=== PATIENT | female | born 1995 | race African-American/Black ===

== ENCOUNTER 2020-02-14 11:49 | Emergency (ER) | payer MEDICAID ==
[~2020-02-14] VITALS: Ht 160 cm; Wt 117.9 kg
[~2020-02-14 11:49] MED LIST: AMOXICILLIN400 MG PO; PRENATAL CAPSU1 EACH PO
[2020-02-14 12:12] VITALS: BP 123/84
[2020-02-14] MEDS ORDERED: Morphine Sulfate 4mg/ml Inj (IV USE ONLY) IVP ONE (12:15)
--- NOTE | 2020-02-14 12:17 | Emergency Room Report ---
History of Present Illness General Chief Complaint: Abdominal Pain Source: Patient Present Illness HPI Disclaimer: Please note that this report is being documented using [employer] technology. This can lead to erroneous entry secondary to incorrect interpretation by the dictating instrument. HPI: 24-year-old female presents for evaluation abdominal pain vomiting and diarrhea. Symptoms began 3 days ago. Patient ate fast food on 02/10 after which she developed upper abdominal cramping, persistent emesis and loose stools. Denies dysuria, hematuria though is currently on her menses. Denies vaginal discharge, denies flank pain. Denies fever, chills, chest pain, palpitation, shortness of breath or cough. Prior history of section and oophorectomy for ectopic . Continues to pass gas. Pain is currently 10/10. No exacerbating or relieving factors. PMH: Denies PSH: section, oophorectomy Allergies: Denies Social Hx: THC use Allergies: Coded Allergies: No Known Allergies (Unverified , 11/28/11) COVID-19 Screening Contact w/high risk pt: No Experienced COVID-19 symptoms?: No COVID-19 Testing performed RUBBER CHEMIST: No Patient History Last Menstrual Period: 02/12/20 Now: No Nursing Documentation-PMH Past Medical History: No Stated History Review of Systems All Other Systems: negative except mentioned in HPI Physical Exam Vital Signs Date Time Temp Pulse Resp B/P (MAP) Pulse Ox O2 Delivery O2 Flow Rate FiO2 02/14/20 11:39 97.2 72 20 123/84 (97) 100 Room Air General: Awake and alert, appears uncomfortable HEENT: NC/AT. EOMI. moist mucous membranes Cardiovascular: RRR. S1 and S2 normal. No murmur appreciated Resp: Normal work of breathing. No cough, wheezing or crackles appreciated Abdomen: Abdomen is soft, nondistended. Obese abdomen. Tender to palpation in the epigastric and left upper quadrant, right upper quadrant, periumbilical region. Mild tenderness in the lower quadrants without rebound. No guarding. No peritoneal signs. Skin: Intact. No abrasions, laceration or rash over the exposed skin MSK: Normal tone and bulk. Moving all extremities. No obvious deformity. Neuro: Awake and alert. Mentating appropriately. Medical Decision Making Diagnostic Impression: Primary Impression: Gastritis Additional Impression: UTI (urinary tract infection) ER Course This is a 24-year-old female presenting for evaluation of 3 days nausea, vomiting, diarrhea and abdominal pain. Differential includes was not limited to gastritis, gastroenteritis, GERD, peptic ulcer disease, pancreatitis, cholecystitis, choledocholithiasis, nephrolithiasis, UTI, pyelonephritis, food poisoning, viral syndrome among others. Patient received antiemetics, pain medication, IV fluids.Labs show moderate bacteria leukocyte esterase positive nitrites as well as blood. This may be urinary tract infection will treat with Keflex. Chemistry and CBC are within normal limits. The patient symptoms are now controlled. Suspect gastritis, possible food poisoning. We will continue on antacids, antiemetics as an outpatient. Also start on Keflex for treatment of UTI. Stable for outpatient follow-up and instructed her to return with new or worsening symptoms. She understands and agrees with this treatment plan Laboratory Tests Test 02/14/20 11:55 White Blood Count 7.3 K/UL (4.8-10.8) Red Blood Count 4.54 M/UL (4.20-5.40) Hemoglobin 14.1 G/DL (12.0-16.0) Hematocrit 42.9 % (37.0-47.0) Mean Corpuscular Volume 94 FL (80-99) Mean Corpuscular Hemoglobin 31.0 PG (27.0-31.0) Mean Corpuscular Hemoglobin Concent 32.9 G/DL (32.0-36.0) Red Cell Distribution Width 13.1 % (11.6-14.8) Platelet Count 264 K/UL (150-450) Mean Platelet Volume 7.3 FL (6.5-10.1) Neutrophils (%) (Auto) 67.0 % (45.0-75.0) Lymphocytes (%) (Auto) 24.6 % (20.0-45.0) Monocytes (%) (Auto) 7.4 % (1.0-10.0) Eosinophils (%) (Auto) 0.4 % (0.0-3.0) Basophils (%) (Auto) 0.7 % (0.0-2.0) Urine Color Yellow Urine Appearance Turbid Urine pH 5 (4.5-8.0) Urine Specific [place] 1.025 (1.005-1.035) Urine Protein 3+ (NEGATIVE) H Urine Glucose (UA) Negative (NEGATIVE) Urine Ketones 2+ (NEGATIVE) H Urine Blood 5+ (NEGATIVE) H Urine Nitrite Positive (NEGATIVE) H Urine Bilirubin Negative (NEGATIVE) Urine Urobilinogen 1 MG/DL (0.0-1.0) H Urine Leukocyte Esterase 2+ (NEGATIVE) H Urine RBC Tntc /HPF (0 - 2) H Urine WBC 2-4 /HPF (0 - 2) Urine Squamous Epithelial Cells Few /LPF (NONE/OCC) Urine Bacteria Moderate /HPF (NONE) H Sodium Level 144 MMOL/L (136-145) Potassium Level 3.5 MMOL/L (3.5-5.1) Chloride Level 107 MMOL/L (98-107) Carbon Dioxide Level 28 MMOL/L (21-32) Anion Gap 9 mmol/L (5-15) Blood Urea Nitrogen 12 mg/dL (7-18) Creatinine 0.9 MG/DL (0.55-1.30) Estimated Glomerular Filtration Rate > 60 mL/min (>60) Glucose Level 108 MG/DL (74-106) H Calcium Level 8.9 MG/DL (8.5-10.1) Total Bilirubin 0.3 MG/DL (0.2-1.0) Aspartate Amino Transferase (AST) 16 U/L (15-37) Alanine Aminotransferase (ALT) 23 U/L (12-78) Alkaline Phosphatase 106 U/L (46-116) Total Protein 7.7 G/DL (6.4-8.2) Albumin 3.7 G/DL (3.4-5.0) Globulin 4.0 g/dL Albumin/Globulin Ratio 0.9 (1.0-2.7) L Lipase 78 U/L (73-393) Last Vital Signs Date Time Temp Pulse Resp B/P (MAP) Pulse Ox O2 Delivery O2 Flow Rate FiO2 02/14/20 11:39 97.2 72 20 123/84 (97) 100 Room Air Disposition: HOME, SELF-CARE Condition: Improved Scripts Ondansetron Odt* (ZOFRAN ODT*) 4 Mg Tab.rapdis 4 MG BC EVERY 6 HOURS PRN for Nausea & Vomiting, #20 TAB 0 Refills Prov: Bhanu Dumont MD 02/14/20 Famotidine* (Pepcid 20mg tablet*) 20 Mg Tablet 20 MG ORAL DAILY for Gerd, #30 TAB 0 Refills Prov: Bhanu Dumont MD 02/14/20 Cephalexin* (KEFLEX*) 500 Mg Capsule 500 MG ORAL EVERY 12 HOURS, #14 CAP 0 Refills Prov: Bhanu Dumont MD 02/14/20 Bhanu Dumont MD Feb 14, 2020 12:17
[2020-02-14 12:30] LABS: BASOPHILS % (AUTO) 0.7 % (0.0-2.0); EOSINOPHILS % (AUTO) 0.4 % (0.0-3.0); HEMATOCRIT 42.9 % (37.0-47.0); HEMOGLOBIN 14.1 G/DL (12.0-16.0); LYMPHOCYTES % (AUTO) 24.6 % (20.0-45.0); MEAN CORPUSCULAR VOLUME 94 FL (80-99); MONOCYTES % (AUTO) 7.4 % (1.0-10.0); PLATELET COUNT 264 K/UL (150-450); RED BLOOD COUNT 4.54 M/UL (4.20-5.40); RED CELL DISTRIBUTION WIDTH 13.1 % (11.6-14.8); WHITE BLOOD COUNT 7.3 K/UL (4.8-10.8)
[2020-02-14] MEDS ORDERED: Mylanta II UD 30ml ORAL ONE (12:30)
[2020-02-14] MEDS ORDERED: Lidocaine 2% Visc 15ml soln ORAL ONE (12:30)
[2020-02-14] MEDS ORDERED: Dicyclomine HCl 10mg/5ml oral soln ORAL ONE (12:30)
[2020-02-14 12:35] LABS: ANION GAP 9 mmol/L (5-15); BLOOD UREA NITROGEN 12 mg/dL (7-18); CALCIUM 8.9 MG/DL (8.5-10.1); CARBON DIOXIDE 28 MMOL/L (21-32); CHLORIDE 107 MMOL/L (98-107); CREATININE 0.9 MG/DL (0.55-1.30); POTASSIUM 3.5 MMOL/L (3.5-5.1); SODIUM 144 MMOL/L (136-145)
[2020-02-14 12:39] LABS: ALANINE AMINOTRANSFERASE 23 U/L (12-78); ALBUMIN 3.7 G/DL (3.4-5.0); ALBUMIN/GLOBULIN RATIO 0.9 (1.0-2.7); ALKALINE PHOSPHATASE 106 U/L (46-116); ASPARTATE AMINO TRANSFERASE 16 U/L (15-37); BILIRUBIN,TOTAL 0.3 MG/DL (0.2-1.0)
[2020-02-14 12:41] LABS: APPEARANCE,URINE TURBID; BILIRUBIN, URINE NEGATIVE (NEGATIVE); GLUCOSE, URINE (UA) NEGATIVE (NEGATIVE); KETONES,URINE 2+ (NEGATIVE); LEUKOCYTE ESTERASE ,URINE 2+ (NEGATIVE); NITRITE,URINE POSITIVE (NEGATIVE); PH,URINE 5 (4.5-8.0); PROTEIN,URINE 3+ (NEGATIVE); UROBILINOGEN,URINE 1 MG/DL (0.0-1.0)
[2020-02-14 12:49] LABS: COLOR,URINE YELLOW
[2020-02-14] MEDS ORDERED: cefTRIAXone 1 GM in NS 55 ML IVPB ONE (13:00)
[2020-02-14] MEDS ORDERED: ONDANSETRON ODT4 MG BC (13:02)
[2020-02-14] MEDS ORDERED: FAMOTIDINE20 MG ORAL (13:02)
[2020-02-14] MEDS ORDERED: CEPHALEXIN500 MG ORAL (13:02)
[2020-02-14 13:45] VITALS: BP 130/85
== END 2020-02-14 13:11 | disposition home or self-care (01) ==
LOC: EDBD 11:49 → EMR 12:47
DX: K29.70 Gastritis, unspecified, without bleeding (principal); N39.0 Urinary tract infection, site not specified; Z90.721 Acquired absence of ovaries, unilateral
CPT/HCPCS: 36415; 80053; 81003; 83690; 85025; 87086; 96361; 96365; 96375; J0696; J2270; J2405; J7030; S0028; Z7502; 99284

== ENCOUNTER 2020-02-17 17:01 | Emergency (ER) | payer MEDICAID ==
[~2020-02-17] VITALS: Ht 160 cm; Wt 99.8 kg
[~2020-02-17 17:01] MED LIST changes: +CEPHALEXIN500 MG ORAL; +FAMOTIDINE20 MG ORAL; +ONDANSETRON ODT4 MG BC
[2020-02-17 17:35] VITALS: BP 125/75
[2020-02-17] MEDS ORDERED: D5NS 1,000 ML IV ONE ×3 (17:45→18:06)
[2020-02-17] MEDS ORDERED: Mylanta II UD 30ml ORAL ONE (17:45)
[2020-02-17] MEDS ORDERED: Metoclopramide 10mg/2ml Inj IVP ONE (17:45)
[2020-02-17] MEDS ORDERED: Lidocaine 2% Visc 15ml soln ORAL ONE (17:45)
[2020-02-17] MEDS ORDERED: DiphenhydrAMINE 50mg/ml Inj IVP ONE (17:45)
[2020-02-17 18:03] LABS: HEMATOCRIT 40.7 % (37.0-47.0); MEAN CORPUSCULAR VOLUME 91 FL (80-99); PLATELET COUNT 272 K/UL (150-450); RED BLOOD COUNT 4.45 M/UL (4.20-5.40); RED CELL DISTRIBUTION WIDTH 13.4 % (11.6-14.8); WHITE BLOOD COUNT 9.9 K/UL (4.8-10.8)
[2020-02-17 18:10] LABS: ANION GAP 8 mmol/L (5-15); BLOOD UREA NITROGEN 11 mg/dL (7-18); CARBON DIOXIDE 28 MMOL/L (21-32); CHLORIDE 106 MMOL/L (98-107); POTASSIUM 3.4 MMOL/L (3.5-5.1); SODIUM 142 MMOL/L (136-145)
[2020-02-17 18:15] LABS: ALANINE AMINOTRANSFERASE 27 U/L (12-78); ALBUMIN 3.6 G/DL (3.4-5.0); ALBUMIN/GLOBULIN RATIO 0.9 (1.0-2.7); ALKALINE PHOSPHATASE 102 U/L (46-116); ASPARTATE AMINO TRANSFERASE 16 U/L (15-37); BILIRUBIN,TOTAL 0.3 MG/DL (0.2-1.0)
[2020-02-17 19:26] VITALS: BP 120/79
[2020-02-17 19:48] LABS: APPEARANCE,URINE CLOUDY; BILIRUBIN, URINE NEGATIVE (NEGATIVE); GLUCOSE, URINE (UA) NEGATIVE (NEGATIVE); KETONES,URINE 2+ (NEGATIVE); LEUKOCYTE ESTERASE ,URINE 1+ (NEGATIVE); NITRITE,URINE NEGATIVE (NEGATIVE); PH,URINE 9 (4.5-8.0); PROTEIN,URINE NEGATIVE (NEGATIVE); UROBILINOGEN,URINE NORMAL MG/DL (0.0-1.0)
[2020-02-17 19:51] LABS: COLOR,URINE YELLOW
--- NOTE | 2020-02-17 19:51 | Emergency Room Report ---
History of Present Illness General Chief Complaint: Abdominal Pain Source: Patient Present Illness HPI Patient presents via BLS with several hours of epigastric pain, nausea and vomiting. She has been vomiting some brown material but denies any coffee grounds or tashi blood. She denies any fevers or chills. She has been seen multiple times for this same problem. She reports that the stomach feels that it is burning. The pain is rated 10/10. The pain radiates somewhat into her chest. In the past she is used THC and some the pain and vomiting was felt to be related to this. Patient denies any melena Ortho shoe has had some loose stools that have been dark. Patient denies dysuria. Her last menstruation was last week and normal for her and she does not believe she is at this time. The patient tried to take Zofran however it did not help with the nausea. She has no medication for pain at home. The patient was seen February 13 with GIs complaints. She was diagnosed also with a urinary tract infection and started on Keflex. She describes similar abdominal pain and vomiting during this visit. Patient denies exposure to Covid positive contacts. No sore throat, palpitations, shortness of breath, joint pain, rashes, depression, visual changes, dizziness, headache. 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 COVID-19 Screening: Negative COVID-19 COVID-19 Testing Source: nasal Patient History Past Medical History: see triage record, old chart reviewed, other - Gastritis Social History: Reports: smoking, drug use - HC; Denies: alcohol use Social History Narrative Lives with family Now: No Reviewed Nursing Documentation: PMH: Agreed; PSxH: Agreed Nursing Documentation-PMH Past Medical History: No Stated History Review of Systems All Other Systems: negative except mentioned in HPI Physical Exam Vital Signs Date Time Temp Pulse Resp B/P (MAP) Pulse Ox O2 Delivery O2 Flow Rate FiO2 02/17/20 17:08 98.6 60 22 130/75 (93) 99 Room Air 02/17/20 17:35 98 Sp02 EP Interpretation: reviewed, normal General Appearance: well appearing, no apparent distress, GCS 15 - Keeping eyes closed but opens with discussion, non-toxic Head: normocephalic Eyes: bilateral eye PERRL, bilateral eye EOMI, bilateral eye Scleral Injection ENT: moist mucus membranes Neck: supple Respiratory: lungs clear, normal breath sounds Cardiovascular #1: regular rate, rhythm Cardiovascular #2: 2+ radial (R) Gastrointestinal: normal inspection, normal bowel sounds, no mass, non- distended, no guarding, no rebound, tenderness - Epigastric, overweight Genitourinary: no CVA tenderness Musculoskeletal: back normal, normal range of motion Neurologic: alert, oriented x3, grossly normal Psychiatric: mood/affect normal Skin: no rash, warm/dry Medical Decision Making Diagnostic Impression: Primary Impression: Abdominal pain Qualified Codes: R10.13 - Epigastric pain Additional Impression: Nausea vomiting and diarrhea ER Course Patient presents with epigastric pain that is severe at this time with nausea and vomiting. Differential includes gastritis, GERD, gastroenteritis, THC related to hyperemesis, pancreatitis, peptic ulcer disease amongst others. Patient evaluated with labs. Based on exam and history imaging is not indicated at this time. Patient treated with IV hydration, Reglan, Benadryl, Pepcid, Mylanta and viscous lidocaine. Able to tolerate GI cocktail. No more vomiting. Still complaining about discomfort but is agreeable to be able to go home for observation. Discussed findings with patient and treatment plan. Patient stable for outpatient observation and treatment. Laboratory Tests Test 02/17/20 17:50 02/17/20 18:35 White Blood Count 9.9 K/UL (4.8-10.8) Red Blood Count 4.45 M/UL (4.20-5.40) Hemoglobin 14.0 G/DL (12.0-16.0) Hematocrit 40.7 % (37.0-47.0) Mean Corpuscular Volume 91 FL (80-99) Mean Corpuscular Hemoglobin 31.4 PG (27.0-31.0) H Mean Corpuscular Hemoglobin Concent 34.3 G/DL (32.0-36.0) Red Cell Distribution Width 13.4 % (11.6-14.8) Platelet Count 272 K/UL (150-450) Mean Platelet Volume 7.5 FL (6.5-10.1) Neutrophils (%) (Auto) % (45.0-75.0) Lymphocytes (%) (Auto) % (20.0-45.0) Monocytes (%) (Auto) % (1.0-10.0) Eosinophils (%) (Auto) % (0.0-3.0) Basophils (%) (Auto) % (0.0-2.0) Differential Total Cells Counted 100 Neutrophils % (Manual) 84 % (45-75) H Lymphocytes % (Manual) 10 % (20-45) L Monocytes % (Manual) 4 % (1-10) Eosinophils % (Manual) 1 % (0-3) Basophils % (Manual) 1 % (0-2) Band Neutrophils 0 % (0-8) Platelet Estimate Adequate Platelet Morphology Normal Red Blood Cell Morphology Normal Sodium Level 142 MMOL/L (136-145) Potassium Level 3.4 MMOL/L (3.5-5.1) L Chloride Level 106 MMOL/L (98-107) Carbon Dioxide Level 28 MMOL/L (21-32) Anion Gap 8 mmol/L (5-15) Blood Urea Nitrogen 11 mg/dL (7-18) Creatinine 1.0 MG/DL (0.55-1.30) Estimated Glomerular Filtration Rate > 60 mL/min (>60) Glucose Level 123 MG/DL (74-106) H Calcium Level 9.0 MG/DL (8.5-10.1) Total Bilirubin 0.3 MG/DL (0.2-1.0) Aspartate Amino Transferase (AST) 16 U/L (15-37) Alanine Aminotransferase (ALT) 27 U/L (12-78) Alkaline Phosphatase 102 U/L (46-116) Total Protein 7.6 G/DL (6.4-8.2) Albumin 3.6 G/DL (3.4-5.0) Globulin 4.0 g/dL Albumin/Globulin Ratio 0.9 (1.0-2.7) L Lipase 81 U/L (73-393) Serum Alcohol < 3 mg/dL Urine Color Yellow Urine Appearance Cloudy Urine pH 9 (4.5-8.0) Urine Specific [place] 1.015 (1.005-1.035) Urine Protein Negative (NEGATIVE) Urine Glucose (UA) Negative (NEGATIVE) Urine Ketones 2+ (NEGATIVE) H Urine Blood Negative (NEGATIVE) Urine Nitrite Negative (NEGATIVE) Urine Bilirubin Negative (NEGATIVE) Urine Urobilinogen Normal MG/DL (0.0-1.0) Urine Leukocyte Esterase 1+ (NEGATIVE) H Urine RBC 0-2 /HPF (0 - 2) Urine WBC 2-4 /HPF (0 - 2) Urine Squamous Epithelial Cells Many /LPF (NONE/OCC) H Urine Amorphous Sediment Many /LPF (NONE) H Urine Bacteria Few /HPF (NONE) Urine HCG, Qualitative Negative (NEGATIVE) Urine Opiates Screen Negative (NEGATIVE) Urine Barbiturates Screen Negative (NEGATIVE) Phencyclidine (PCP) Screen Negative (NEGATIVE) Urine Amphetamines Screen Negative (NEGATIVE) Urine Benzodiazepines Screen Negative (NEGATIVE) Urine Cocaine Screen Negative (NEGATIVE) Urine Marijuana (THC) Screen Positive (NEGATIVE) H Last Vital Signs Date Time Temp Pulse Resp B/P (MAP) Pulse Ox O2 Delivery O2 Flow Rate FiO2 02/17/20 20:20 98.6 88 17 120/79 97 Room Air 98 Status: improved Disposition: HOME, SELF-CARE Condition: Improved Scripts Mag Hydrox/Aluminum Hyd/Simeth (Mylanta Maximum Strength Liq) 355 Ml Oral.susp 30 ML PO Q6HR for stomach burning, #355 ML Prov: Biju Jackson MD 02/17/20 Promethazine HCl (Promethegan) 25 Mg Supp.rect 25 MG RECTAL Q8HR PRN for Nausea & Vomiting, #4 SUPP 1 Refill Prov: Biju Jackson MD 02/17/20 Promethazine Hcl* (PHENERGAN*) 25 Mg Tablet 25 MG ORAL Q8HR PRN for Nausea & Vomiting, #10 TAB 0 Refills Prov: Biju Jackson MD 02/17/20 Hydrocodone Bit/Acetaminophen 5-325* (NORCO 5-325 TABLET*) 1 Each Tablet 1 TAB ORAL Q6H PRN for FOR PAIN, #8 TAB 0 Refills Prov: Biju Jackson MD 02/17/20 Referrals: [facility],REFERRING (PCP) Biju Jackson MD Feb 17, 2020 19:51
[2020-02-17] MEDS ORDERED: PHENERGAN25 M1 ORAL (19:56)
[2020-02-17] MEDS ORDERED: MYLANTA MAXIMU355 ML PO (19:56)
[2020-02-17] MEDS ORDERED: NORCO 5-325 TA1 EAC1 ORAL (19:56)
[2020-02-17] MEDS ORDERED: PHENERGAN SUPP25 MG RECTAL (19:56)
[2020-02-17 20:20] VITALS: BP 120/79
== END 2020-02-17 20:20 | disposition home or self-care (01) ==
LOC: EDBD 17:01 → EMR 17:56
DX: R10.13 Epigastric pain (principal); R11.2 Nausea with vomiting, unspecified; R19.7 Diarrhea, unspecified
CPT/HCPCS: 36415; 80053; 80307; 81003; 81025; 83690; 85007; 85025; 96365; 96375; G0480; J1200; J2765; S0028; Z7502; 99284